=== PATIENT | male | born 2005 | race Caucasian/White ===

== ENCOUNTER 2025-02-25 22:00 | Emergency (ER) | payer MEDICAID, SELFPAY ==
[2025-02-25 22:03] VITALS: BP 155/98; PULSE 97; RESP 16; TEMP 37; O2SAT 97; BMI 40.0
--- NOTE | 2025-02-25 22:04 | ED_ITS ---
HPI - Wound/Laceration General Chief Complaint: Wound/Laceration Stated Complaint: left hand 4th digit laceration Time Seen by Provider: 02/25/25 22:24 Source: patient, RN notes reviewed and old records reviewed Mode of arrival: ambulatory Limitations: no limitations History of Present Illness ED Provider: Lorenza Singh PA-C HPI narrative: Patient seeks medical attention in emergency department today for evaluation of laceration to his left ring finger. He is right-hand dominant. While he was at home today using a jagged knife to cut corn off of the cob, he accidentally sliced the tip of his left index finger not injuring the bone or feeling like he hit it. He denies any concern for bony fracture. He is not on any anticoagulation. Tetanus status utd. He basically noticed a piece of skin was missing had dinner then came right here. Related Data Allergies Allergy/AdvReac Type Severity Reaction Status Date / Time aspirin Allergy Anaphylaxis Verified 02/25/25 22:06 Review of Systems Review of Systems: Yes all other systems are reviewed and are negative PMFSH Past Medical History Attestation statement: The following information was validated with the patient. Source: old records reviewed and nursing notes reviewed Social History Social History Advance Directives: No Advance Directives Information Provided: Yes Do you have a plan to hurt others: No Plan Physical Exam Exam: Exam: General: Appears in no acute distress, appears well-nourished body habitus is obese, appears stated age. No septic or ill-appearing. Vitals were reviewed as normal, and PMH/Social and Surgical hx was reviewed, including allergies and current medications. - reviewed for prior visits here Head: Normocephalic, no obvious trauma or skin lesions noted. Eyes: EOMI ENMT: moist oral mucosa Neck: trachea midline Cardiovascular: peripheral perfusion normal, Regular heart rate Respiratory: no respiratory distress Abdomen: non-distended Extremities: warm and moving without difficulty. left ring finger, distal phalanx, skin avulsion noted without visible subcutaneous tissue, 1cm rounded, cap refill < 3 secs, distal pulses 2+, does not affect nailbed or cross joint space full ROM, sensation intact. Psych: Cooperative Neuro: Alert and oriented. Vital Signs: Vital Signs: Last Vital Signs Temp 98.6 F 02/25/25 22:31 Pulse 97 02/25/25 22:31 Resp 16 02/25/25 22:31 BP 155/98 H 02/25/25 22:31 Pulse Ox 97 02/25/25 22:31 O2 Del Method Room Air 02/25/25 22:31 BMI result Body Mass Index 40.0 Medications Administered Discontinued Medications Generic Name Dose Route Start Last Admin Trade Name Freq PRN Reason Stop Dose Admin Diphtheria/Tetanus/Acell Pertussis 0.5 ml 02/25/25 22:09 02/25/25 22:13 Diphth,Pertus(Acell),Tet Adult 0.5 Ml Syringe IM 02/25/25 22:10 0.5 ml .ONCE ONE Administration Medical Decision Making Medical Decision Making MDM Narrative: Pt is a ?19 yo M who presents after cutting corn causing a laceration to the left ring finger?, 7 hours ago. XR was considered but given TIERRA and ease to explore wound margins, no evidence for f/b, clinically no concern for ?fracture, dislocation, or foreign body. Laceration unlikely contaminated requiring PO ABX. Clean bottom of a bloodless field was witnessed on exam. Neurosensory exams and circulation appropriate distal to the wound. FROM. Wound closed with dermabond and neurosensory + circulatory exams same after repair as before. TD UTD. Will DC with return precautions, instructions for home care and follow up for wound recheck. Pain is under control. Differential Diagnosis Differential Diagnoses: The differential diagnosis associated with the presentation includes Admission/Observation Consideration of admission/observation: Escalation of care including admission/observation considered Tests considered The following testing was considered but not selected: would have considered xray if deep concern for fx or nvc or f/b Prescription Management I considered prescription management with: Antibiotic Social Determinants Patient?s care significantly limited by Social Determinants of Health including: Other Social Determinant of Health Procedures Laceration Laceration 1: Site: upper extremity Side (If applicable): left (ring finger) Size (cm): 1.0 Description: clean and other (skin avulsion) Depth: simple, single layer Pre-repair: wound explored, irrigated extensively and deep structures intact Technique: skin adhesive (dermabond, tourniquet applied < 5 minutes) Critical Care Time Critical Care Time Critical Care Time: No Discharge Plan Discharge Clinical Impression: Laceration of left ring finger Patient Disposition: Home, Self-Care Additional Instructions: We have repaired your laceration with Dermabond.?? Your tetanus was updated today and good for 10 years. The glue will hold the edges of the skin together while it heals.?? The glue will wear off in about 5-7 days.?? Do not put lotion or antibiotic ointment on the glue as it will break it down prematurely.?? You can wash the area normally after 6 hours; however, do not have any prolonged soaks in water.?? As with any laceration, there may be scarring.? The full extent of the scar may not be determined for 6 months to a year.? Minimizing sun exposure will help to reduce scarring. Return immediately or call your doctor for signs of infection that include the following:? Red streaks from wound or surrounding the wound, pus draining from the wound, increased pain, or fever > 100.4 degrees F. Referrals: Physician,Unknown J [Primary Care Provider, Medical] Referral Note: recheck Stand Alone Forms: Work/School Release Interventions: ED Discharge Assessment Last Done: 02/25/25 22:31 Discharge Date/Time: 02/25/25 22:32 Print Language: [place]
[2025-02-25] MEDS: Diphth,Pertus(ACell),Tet Adult 0.5 ML SYRINGE IM (22:13)
[2025-02-25 22:31] VITALS: BP 155/98; PULSE 97; RESP 16; TEMP 37; O2SAT 97
== END 2025-02-25 22:32 | disposition home or self-care (01) ==
PROVIDERS: Emergency Provider Emergency Medicine
DX: S61.215A Laceration without foreign body of left ring finger without damage to nail, initial encounter (principal); Z23 Encounter for immunization; W26.0XXA Contact with knife, initial encounter; Y93.G3 Activity, cooking and baking; Y92.9 Unspecified place or not applicable; Y99.9 Unspecified external cause status; Z88.6 Allergy status to analgesic agent
CPT/HCPCS: 12001; 90471; 90715; 99282; 99285